=== PATIENT | male | born 1965 | race Caucasian/White ===

== ENCOUNTER 2018-04-12 03:23 | Emergency (ER) | payer MEDICAID ==
[2018-04-12] MEDS: ALBUTEROL 0.083% (NEB) 2.5 MG/3 ML AMP NEB (03:55)
[2018-04-12] MEDS: IPRATROPIUM (NEB) 0.5 MG/2.5 ML AMP NEB (03:55)
[2018-04-12] MEDS: METHYLPREDNISOLONE 125 MG INJ IM (04:22)
== END 2018-04-12 05:17 | disposition home or self-care (01) ==
LOC: FTE 03:23
DX: J20.9 Acute bronchitis, unspecified (principal); J45.901 Unspecified asthma with (acute) exacerbation
CPT/HCPCS: 94664; 96372; 99284-25

== ENCOUNTER 2018-04-14 00:06 | Emergency (ER) | payer MEDICAID ==
[2018-04-14] MEDS: SODIUM CHLORIDE 0.9% 1L IRRIG IRR (02:33)
[2018-04-14] MEDS: LIDOCAINE 2%/EPI MPF (SDV) 20 ML VIAL INJ (02:33)
[2018-04-14] MEDS: CEPHALEXIN 500 MG CAP PO (02:59)
[2018-04-14] MEDS: HYDROCODONE/APAP (10/325) TAB PO (03:00)
[2018-04-14] MEDS: DIPHTH/TET/ACEL PERTUSS (ADULT) 0.5 ML VIAL IM (03:01)
[2018-04-14] MEDS ORDERED: LIDOCAINE 1%/EPI 1:200,000 10 ML VIAL INJ (03:26)
[2018-04-14] MEDS: LIDOCAINE 1%/EPI 30 ML INJ INJ (03:34)
== END 2018-04-14 05:46 | disposition home or self-care (01) ==
LOC: E/R 00:06
DX: S61.213A Laceration without foreign body of left middle finger without damage to nail, initial encounter (principal); J45.909 Unspecified asthma, uncomplicated; W26.8XXA Contact with other sharp object(s), not elsewhere classified, initial encounter; Y92.9 Unspecified place or not applicable; Z23 Encounter for immunization
CPT/HCPCS: 12004; 73120; 90471; 90715; 99283-25